=== PATIENT | male | born 1970 | race Caucasian/White ===

== ENCOUNTER 2018-01-07 13:19 | Inpatient (IN) | payer OTHER ==
[2018-01-07 14:40] LABS: HEMATOCRIT 39.9 % (42.0-52.0); HEMOGLOBIN 13.8 g/dl (13.5-17.5); MEAN CORPUSCULAR HEMOGLOBIN 30.3 pg (27.0-33.0); MEAN CORPUSCULAR HGB CONC 34.6 g/dl (32.0-36.5); MEAN CORPUSCULAR VOLUME 87.5 fl (80.0-96.0); PLATELET COUNT, AUTOMATED 298 10^3/uL (150-450); RED BLOOD COUNT 4.56 10^6/uL (4.30-6.10); RED CELL DISTRIBUTION WIDTH 14.6 % (11.5-14.5); WHITE BLOOD COUNT 10.4 10^3/uL (4.0-10.0)
[2018-01-07 15:12] LABS: ALBUMIN 3.7 GM/DL (3.2-5.2); ALBUMIN/GLOBULIN RATIO 1.12 (1.00-1.93); ALKALINE PHOSPHATASE 85 U/L (45-117); ALT/SGPT 17 U/L (12-78); ANION GAP 7 MEQ/L (8-16); AST/SGOT 15 U/L (7-37); BILIRUBIN,DIRECT < 0.1 MG/DL (0.0-0.2); BILIRUBIN,TOTAL 0.3 MG/DL (0.2-1.0); BLOOD UREA NITROGEN 20 MG/DL (7-18); CARBON DIOXIDE LEVEL 28 MEQ/L (21-32); CHLORIDE LEVEL 108 MEQ/L (98-107); CREATININE FOR GFR 0.98 MG/DL (0.70-1.30); ETHYL ALCOHOL (ETHANOL) < 0.003 % (0.000-0.010); GLOMERULAR FILTRATION RATE > 60.0 (>60); GLUCOSE, FASTING 82 MG/DL (70-100); POTASSIUM SERUM 4.3 MEQ/L (3.5-5.1); SALICYLATE LEVEL 4.3 MG/DL (5.0-30.0); SODIUM LEVEL 143 MEQ/L (136-145); THYROID STIMULATING HORMONE 0.362 uIU/ML (0.358-3.740)
[2018-01-07 15:19] LABS: ACETAMINOPHEN LEVEL < 2.0 UG/ML (10.0-30.0)
[2018-01-07 17:28] LABS: AMPHETAMINES LEVEL URINE NEGATIVE (NEGATIVE); BARBITURATES URINE NEGATIVE (NEGATIVE); BENZODIAZEPINES URINE NEGATIVE (NEGATIVE); CANNABINOIDS URINE POSITIVE (NEGATIVE); COCAINE METABOLITE URINE NEGATIVE (NEGATIVE); METHADONE URINE NEGATIVE (NEGATIVE); OPIATES URINE NEGATIVE (NEGATIVE); PHENCYCLIDINE URINE NEGATIVE (NEGATIVE)
[2018-01-07] MEDS: IPRATROPIUM 0.03% NASAL SPRAY 30 ML (ATROVENT) (21:00)
[2018-01-08] MEDS ORDERED: MAALOX 30 ML SUSP *UDC PO (00:15)
[2018-01-08] MEDS ORDERED: ONDANSETRON 4 MG TAB (S0181) PO (00:15)
[2018-01-08] MEDS: NICOTINE 21MG/24HR 1 EA TRANSDERMAL TD ×2 (00:54→09:28)
[2018-01-08] MEDS: NUEDEXTA PO ×3 (01:59→21:26)
[2018-01-08] MEDS: TROSPIUM CHLORIDE 20 MG PO ×3 (01:59→21:26)
[2018-01-08] MEDS: COPAXONE 40 MG/ML SC (02:02)
[2018-01-08] MEDS: BACLOFEN 10 MG TAB PO ×4 (02:04→21:26)
[2018-01-08] MEDS: traZODone 50 MG TAB PO ×2 (02:14→21:27)
[2018-01-08] MEDS: PANTOPRAZOLE 40MG TAB (PROTONIX) PO ×2 (06:18→17:07)
[2018-01-08] MEDS: LISINOPRIL 10 MG TAB PO (09:28)
[2018-01-08] MEDS: NEPHRO-VIT TAB (NEPHROCAPS) PO (09:28)
[2018-01-08] MEDS: ASPIRIN 81 MG ENTERIC TAB PO (09:28)
[2018-01-08] MEDS: VITAMIN D 1,000 INTERNATIONAL UNITS TABLET PO (09:29)
[2018-01-08] MEDS: IPRATROPIUM 0.03% NASAL SPRAY 30 ML (ATROVENT) ×2 (09:29→21:25)
[2018-01-08] MEDS: CETIRIZINE (ZyrTEC) 10 MG TAB PO (09:29)
[2018-01-08] MEDS: FLUTICASONE PROP 0.05% NASAL SPRAY 16 GM (FLONASE) (09:29)
[2018-01-08] MEDS: INFLUENZA QUADRIVALENT PF VACCINE 0.5ML SYRINGE (90686) IM (09:32)
[2018-01-08] MEDS: ACETAMINOPHEN TAB 650MG DOSE (2X325MG) PO ×2 (10:25→16:41)
[2018-01-09] MEDS: PANTOPRAZOLE 40MG TAB (PROTONIX) PO ×2 (06:08→17:09)
[2018-01-09] MEDS: BACLOFEN 10 MG TAB PO ×3 (06:08→21:21)
[2018-01-09] MEDS: LISINOPRIL 10 MG TAB PO (08:13)
[2018-01-09] MEDS: ASPIRIN 81 MG ENTERIC TAB PO (08:13)
[2018-01-09] MEDS: IPRATROPIUM 0.03% NASAL SPRAY 30 ML (ATROVENT) ×2 (08:14→20:12)
[2018-01-09] MEDS: VITAMIN D 1,000 INTERNATIONAL UNITS TABLET PO (08:14)
[2018-01-09] MEDS: NUEDEXTA PO ×2 (08:14→20:12)
[2018-01-09] MEDS: TROSPIUM CHLORIDE 20 MG PO ×2 (08:14→20:12)
[2018-01-09] MEDS: FLUTICASONE PROP 0.05% NASAL SPRAY 16 GM (FLONASE) (08:14)
[2018-01-09] MEDS: NEPHRO-VIT TAB (NEPHROCAPS) PO (08:14)
[2018-01-09] MEDS: CETIRIZINE (ZyrTEC) 10 MG TAB PO (08:14)
[2018-01-09] MEDS: NICOTINE 21MG/24HR 1 EA TRANSDERMAL TD (08:15)
[2018-01-09] MEDS: traZODone 50 MG TAB PO (20:11)
[2018-01-09] MEDS: ACETAMINOPHEN TAB 650MG DOSE (2X325MG) PO (21:21)
[2018-01-09] MEDS: MOM 30ML SUSPENSION UDC PO (21:29)
[2018-01-09] MEDS: BACITRACIN OINT 30GM TOP (23:02)
[2018-01-10] MEDS: BACLOFEN 10 MG TAB PO ×3 (06:02→21:14)
[2018-01-10] MEDS: PANTOPRAZOLE 40MG TAB (PROTONIX) PO ×2 (06:02→18:06)
[2018-01-10] MEDS: BACITRACIN OINT 30GM TOP ×2 (08:15→21:15)
[2018-01-10] MEDS: ASPIRIN 81 MG ENTERIC TAB PO (08:15)
[2018-01-10] MEDS: IPRATROPIUM 0.03% NASAL SPRAY 30 ML (ATROVENT) ×2 (08:15→21:14)
[2018-01-10] MEDS: FLUTICASONE PROP 0.05% NASAL SPRAY 16 GM (FLONASE) (08:15)
[2018-01-10] MEDS: VITAMIN D 1,000 INTERNATIONAL UNITS TABLET PO (08:16)
[2018-01-10] MEDS: NEPHRO-VIT TAB (NEPHROCAPS) PO (08:16)
[2018-01-10] MEDS: NICOTINE 21MG/24HR 1 EA TRANSDERMAL TD (08:16)
[2018-01-10] MEDS: CETIRIZINE (ZyrTEC) 10 MG TAB PO (08:16)
[2018-01-10] MEDS: LISINOPRIL 10 MG TAB PO (08:16)
[2018-01-10] MEDS: NUEDEXTA PO ×2 (08:16→21:15)
[2018-01-10] MEDS: ESCITALOPRAM OXALATE 5MG TABLET (LEXAPRO) PO (08:16)
[2018-01-10] MEDS: TROSPIUM CHLORIDE 20 MG PO ×2 (08:18→21:15)
[2018-01-10] MEDS: COPAXONE 40 MG/ML SC (08:19)
[2018-01-10 09:27] LABS: TOTAL 25(OH) VITAMIN D 35.7 NG/ML (30.0-100.0)
[2018-01-11] MEDS: PANTOPRAZOLE 40MG TAB (PROTONIX) PO ×2 (06:04→17:21)
[2018-01-11] MEDS: BACLOFEN 10 MG TAB PO ×3 (06:04→21:06)
[2018-01-11] MEDS: NICOTINE 21MG/24HR 1 EA TRANSDERMAL TD (08:14)
[2018-01-11] MEDS: TROSPIUM CHLORIDE 20 MG PO ×2 (08:15→21:06)
[2018-01-11] MEDS: NUEDEXTA PO ×2 (08:15→21:06)
[2018-01-11] MEDS: FLUTICASONE PROP 0.05% NASAL SPRAY 16 GM (FLONASE) (08:15)
[2018-01-11] MEDS: BACITRACIN OINT 30GM TOP ×2 (08:16→21:00)
[2018-01-11] MEDS: CETIRIZINE (ZyrTEC) 10 MG TAB PO (08:16)
[2018-01-11] MEDS: VITAMIN D 1,000 INTERNATIONAL UNITS TABLET PO (08:17)
[2018-01-11] MEDS: ASPIRIN 81 MG ENTERIC TAB PO (08:17)
[2018-01-11] MEDS: LISINOPRIL 10 MG TAB PO (08:17)
[2018-01-11] MEDS: IPRATROPIUM 0.03% NASAL SPRAY 30 ML (ATROVENT) ×2 (08:17→21:05)
[2018-01-11] MEDS: NEPHRO-VIT TAB (NEPHROCAPS) PO (08:18)
[2018-01-11] MEDS: ESCITALOPRAM OXALATE 5MG TABLET (LEXAPRO) PO (08:18)
[2018-01-11] MEDS: hydrOXYzine 25 MG TAB PO (17:23)
[2018-01-11] MEDS: traZODone 50 MG TAB PO (21:08)
[2018-01-12] MEDS: PANTOPRAZOLE 40MG TAB (PROTONIX) PO ×2 (05:58→17:53)
[2018-01-12] MEDS: BACLOFEN 10 MG TAB PO ×3 (05:58→21:19)
[2018-01-12] MEDS: COPAXONE 40 MG/ML SC (08:11)
[2018-01-12] MEDS: BACITRACIN OINT 30GM TOP ×2 (08:11→21:00)
[2018-01-12] MEDS: TROSPIUM CHLORIDE 20 MG PO ×2 (08:11→21:22)
[2018-01-12] MEDS: NUEDEXTA PO ×2 (08:11→21:19)
[2018-01-12] MEDS: FLUTICASONE PROP 0.05% NASAL SPRAY 16 GM (FLONASE) (08:12)
[2018-01-12] MEDS: IPRATROPIUM 0.03% NASAL SPRAY 30 ML (ATROVENT) ×2 (08:12→21:19)
[2018-01-12] MEDS: ASPIRIN 81 MG ENTERIC TAB PO (08:12)
[2018-01-12] MEDS: NEPHRO-VIT TAB (NEPHROCAPS) PO (08:12)
[2018-01-12] MEDS: ESCITALOPRAM OXALATE 5MG TABLET (LEXAPRO) PO (08:13)
[2018-01-12] MEDS: LISINOPRIL 10 MG TAB PO (08:13)
[2018-01-12] MEDS: CETIRIZINE (ZyrTEC) 10 MG TAB PO (08:13)
[2018-01-12] MEDS: VITAMIN D 1,000 INTERNATIONAL UNITS TABLET PO (08:15)
[2018-01-12] MEDS: NICOTINE 21MG/24HR 1 EA TRANSDERMAL TD (08:15)
[2018-01-12] MEDS: traZODone 50 MG TAB PO (21:21)
[2018-01-13] MEDS: PANTOPRAZOLE 40MG TAB (PROTONIX) PO (06:07)
[2018-01-13] MEDS: BACLOFEN 10 MG TAB PO ×2 (06:07→13:35)
[2018-01-13] MEDS: NEPHRO-VIT TAB (NEPHROCAPS) PO (08:22)
[2018-01-13] MEDS: NICOTINE 21MG/24HR 1 EA TRANSDERMAL TD (08:22)
[2018-01-13] MEDS: CETIRIZINE (ZyrTEC) 10 MG TAB PO (08:22)
[2018-01-13] MEDS: LISINOPRIL 10 MG TAB PO (08:22)
[2018-01-13] MEDS: ASPIRIN 81 MG ENTERIC TAB PO (08:22)
[2018-01-13] MEDS: BACITRACIN OINT 30GM TOP (08:23)
[2018-01-13] MEDS: NUEDEXTA PO (08:23)
[2018-01-13] MEDS: FLUTICASONE PROP 0.05% NASAL SPRAY 16 GM (FLONASE) (08:23)
[2018-01-13] MEDS: IPRATROPIUM 0.03% NASAL SPRAY 30 ML (ATROVENT) (08:23)
[2018-01-13] MEDS: ESCITALOPRAM OXALATE 5MG TABLET (LEXAPRO) PO (08:23)
[2018-01-13] MEDS: VITAMIN D 1,000 INTERNATIONAL UNITS TABLET PO (08:23)
[2018-01-13] MEDS: TROSPIUM CHLORIDE 20 MG PO (08:24)
== END 2018-01-13 14:50 | disposition home or self-care (01) | DRG 756 ==
LOC: M ED 13:19 → M ED INP 21:00 → M PSY 22:15
DX: F41.9 Anxiety disorder, unspecified (principal); E55.9 Vitamin D deficiency, unspecified; I10 Essential (primary) hypertension; G35 Multiple sclerosis; F32.9 Major depressive disorder, single episode, unspecified; Z72.89 Other problems related to lifestyle; F42.9 Obsessive-compulsive disorder, unspecified; F12.90 Cannabis use, unspecified, uncomplicated; Z59.8 Other problems related to housing and economic circumstances; Z79.82 Long term (current) use of aspirin; Z79.899 Other long term (current) drug therapy; K21.9 Gastro-esophageal reflux disease without esophagitis; L98.9 Disorder of the skin and subcutaneous tissue, unspecified

== ENCOUNTER → 2024-02-09 | Outpatient (CLI) | payer OTHER, MEDICAID ==
[~2024-02-09] MED LIST: ASPI81TA86 PO; BACL10TA2 PO; CETI10TA PO; COPA1INJ SC; FLUTISP; IPRA3SP; LEXA5TAB13 PO; LISI10TA22 PO; MYRB50TA; NUED20CA PO; ONDA-83 PO; PANT40TA29 PO; SUCR1ORA; TROS20TA3 PO
== END ==
LOC: M CARPUL 09:44
PROVIDERS: ATTEND Internal Medicine Hematology & Oncology
DX: R93.89 Abnormal findings on diagnostic imaging of other specified body structures (principal)

== ENCOUNTER → 2024-02-23 | Outpatient (CLI) | payer OTHER, MEDICAID ==
[~2024-02-23] MED LIST changes: +PROHANCE 279.3MG/ML 15ML VIAL As Ordered ONE
== END ==
LOC: M RAD 14:35
PROVIDERS: ATTEND Internal Medicine Hematology & Oncology
DX: R93.89 Abnormal findings on diagnostic imaging of other specified body structures (principal); R90.82 White matter disease, unspecified
CPT/HCPCS: 70553; A9576

== ENCOUNTER → 2024-03-27 | Outpatient (CLI) | payer OTHER, MEDICAID ==
[~2024-03-27] MED LIST changes: -PROHANCE 279.3MG/ML 15ML VIAL As Ordered ONE
== END ==
LOC: M RAD 13:20
PROVIDERS: ATTEND Internal Medicine Pulmonary Disease
DX: R91.8 Other nonspecific abnormal finding of lung field (principal); J43.2 Centrilobular emphysema; J47.9 Bronchiectasis, uncomplicated

== ENCOUNTER → 2024-05-04 | Outpatient (CLI) | payer OTHER, MEDICAID ==
[~2024-05-04] MED LIST changes: +D-3-50003 PO; +EQL50TAB2 PO; -MYRB50TA; +MYRB50TA PO; +PROA1AER2 IN; -SUCR1ORA; +SUCR1ORA PO; +SUCR1ORA2 PO; +VENTAER INH
== END ==
LOC: M RAD 10:59
PROVIDERS: ATTEND Internal Medicine Pulmonary Disease
DX: R91.8 Other nonspecific abnormal finding of lung field (principal); I77.810 Thoracic aortic ectasia; J43.9 Emphysema, unspecified

== ENCOUNTER 2024-05-10 07:12 | Day surgery (SDC) | payer OTHER, MEDICAID ==
[~2024-05-10] VITALS: Ht 172.7 cm; Wt 61.8 kg
[2024-05-10] MEDS ORDERED: ONDANSETRON 4MG 2ML VIAL As Ordered ONE (07:16)
[2024-05-10] MEDS ORDERED: SUGAMMADEX SODIUM 500 MG/5 ML VIAL (BRIDION) As Ordered ONE (07:16)
[2024-05-10] MEDS ORDERED: LIDOCAINE 2% 100MG/5ML SDV (FOR ANES.) As Ordered ONE (07:16)
[2024-05-10] MEDS ORDERED: fentaNYL 100 MCG/2 ML INJECTION As Ordered ONE (07:16)
[2024-05-10] MEDS ORDERED: MIDAZOLAM INJ 2MG/2ML VIAL As Ordered ONE (07:16)
[2024-05-10] MEDS ORDERED: propofoL 200 MG/20 ML VIAL As Ordered ONE (07:16)
[2024-05-10] MEDS ORDERED: GLYCOPYRROLATE INJ 0.2 MG/ML 2 ML VIAL As Ordered ONE (07:16)
[2024-05-10] MEDS ORDERED: ROCURONIUM BROMIDE 50MG/5ML VIAL As Ordered ONE (07:16)
[2024-05-10] MEDS ORDERED: LABETALOL 100MG/20ML VIAL As Ordered ONE (07:55)
[2024-05-10] MEDS: ALBUTEROL SULFATE 2.5MG/0.5ML INH NEB SOLN INH ONE (08:13)
[2024-05-10] MEDS: LIDOCAINE PRES-FREE 2% 10ML AMP INH ONE (08:13)
[2024-05-10] MEDS ORDERED: LR 1,000 ML IV SCH ×2 (08:15→10:15)
[2024-05-10] MEDS: CETACAINE SPRAY 5GM As Ordered ONE (09:31)
[2024-05-10] MEDS: EPINEPHrine 1MG/10ML SYRINGE 1.5IN As Ordered ONE (10:00)
[2024-05-10] MEDS ORDERED: HYDROMORPHONE HCL 0.5 MG/ 0.5 ML SYRINGE IV PRN (10:15)
[2024-05-10] MEDS ORDERED: oxyCODONE 5MG TAB PO PRN (10:15)
[2024-05-10] MEDS ORDERED: fentaNYL 100 MCG/2 ML INJECTION IV PRN (10:15)
[2024-05-10] MEDS ORDERED: ONDANSETRON 4MG 2ML VIAL IV PRN (10:15)
[2024-05-10 11:10] VITALS: BP 143/100; TEMP 96.6; O2SAT 95
== END 2024-05-10 11:44 | disposition home or self-care (01) ==
LOC: M SDC 07:12
PROVIDERS: ATTEND Internal Medicine Pulmonary Disease
DX: J84.10 Pulmonary fibrosis, unspecified (principal); J44.9 Chronic obstructive pulmonary disease, unspecified; I10 Essential (primary) hypertension; K21.9 Gastro-esophageal reflux disease without esophagitis; F41.9 Anxiety disorder, unspecified; F32.A Depression, unspecified; G35 Multiple sclerosis; Z79.51 Long term (current) use of inhaled steroids; Z79.899 Other long term (current) drug therapy; Z87.891 Personal history of nicotine dependence
CPT/HCPCS: 31624; 31627; 31628; 31654; 71045; 76000; 87102; 87116; 87206; 88305; 93005; C1601; J0171; J1100; J1596; J1920; J2250; J2405; J3010; S2900

== ENCOUNTER → 2024-05-18 | Outpatient (CLI) | payer OTHER, MEDICAID ==
[~2024-05-18] MED LIST changes: +CRAN500C11 PO
== END ==
LOC: M RAD 13:55
PROVIDERS: ATTEND Internal Medicine Pulmonary Disease
DX: R91.8 Other nonspecific abnormal finding of lung field (principal)

== ENCOUNTER → 2024-07-13 | Outpatient (CLI) | payer OTHER ==
[~2024-07-13] MED LIST changes: -CRAN500C11 PO; +CVS500CA5 PO
[2024-07-13 19:22] LABS: BASO # 0.1 10^3/uL (0.0-0.2); BASO % 0.6 % (0.0-1.0); EOS % 0.4 % (0.0-3.0); HEMATOCRIT 43.6 % (42.0-52.0); HEMOGLOBIN 14.6 g/dl (13.5-17.5); LYMPH # 1.7 10^3/uL (1.5-5.0); MEAN CORPUSCULAR HEMOGLOBIN 29.7 pg (27.0-33.0); MEAN CORPUSCULAR HGB CONC 33.5 g/dl (32.0-36.5); MEAN CORPUSCULAR VOLUME 88.8 fl (80.0-96.0); MONO # 0.8 10^3/uL (0.0-0.8); MONO % 9.9 % (2.0-8.0); NEUTROPHILS # 5.3 10^3/uL (1.5-8.5); NEUTROPHILS % 67.8 % (36.0-66.0); PLATELET COUNT, AUTOMATED 268 10^3/uL (150-450); RED BLOOD COUNT 4.91 10^6/uL (4.30-6.10); WHITE BLOOD COUNT 7.9 10^3/uL (4.0-10.0)
[2024-07-13 19:40] LABS: C REACTIVE PROTEIN QUANTITATIV < 0.40 MG/DL (<1.0)
[2024-07-13 19:44] LABS: ALBUMIN 4.1 G/DL (3.2-5.2); ALKALINE PHOSPHATASE 70 U/L (40-129); ALT/SGPT 29 U/L (7.0-40); AST/SGOT 18 U/L (<34); BILIRUBIN,TOTAL 0.5 MG/DL (0.3-1.2); BLOOD UREA NITROGEN 12 MG/DL (9-23); CALCIUM LEVEL 9.7 MG/DL (8.5-10.1); CARBON DIOXIDE LEVEL 26 MMOL/L (20-31); CHLORIDE LEVEL 106 MMOL/L (98-107); CREATININE FOR GFR 0.89 MG/DL (0.70-1.30); ERYTHROCYTE SEDIMENTATION RATE 9 mm/hr (0-20); GLOMERULAR FILTRATION RATE > 60.0 (>56); GLUCOSE, FASTING 77 MG/DL (60-100); POTASSIUM SERUM 4.2 MMOL/L (3.5-5.1); SODIUM LEVEL 139 MMOL/L (136-145); TOTAL PROTEIN 7.7 G/DL (5.7-8.2)
[2024-07-20 17:33] LABS: ASPERGILLUS FLAVUS ABY Negative (Negative); ASPERGILLUS FUMIGATUS ABY Negative (Negative); ASPERGILLUS NIGER ABY Negative (Negative); HISTOPLASMA AB H BAND Negative (Negative); HISTOPLASMA AB M BAND Negative (Negative)
[2024-07-20 20:01] LABS: CRYPTOCOCCUS ANTIBODY SERUM <1:2 (<1:2)
[2024-07-21 20:16] LABS: COCCIDIODES AB IGG NEGATIVE (NEGATIVE); COCCIDIOIDES AB IGM NEGATIVE (NEGATIVE)
[2024-07-24 20:58] LABS: FUNGITELL INTERPRETATION NEGATIVE (NEGATIVE); FUNGITELL, SERUM < 31 pg/mL (<60)
== END ==
LOC: M PLALAB 14:19
PROVIDERS: ATTEND Internal Medicine Infectious Disease
DX: J98.4 Other disorders of lung (principal)

== ENCOUNTER → 2024-07-13 | Outpatient (REF) | payer OTHER | LOC: M SFHCPLAZ 13:59 | PROVIDERS: ATTEND Internal Medicine Infectious Disease | DX: J98.4 Other disorders of lung (principal) ==

== ENCOUNTER → 2024-11-28 | Outpatient (CLI) | payer OTHER, MEDICAID | LOC: M RAD 12:35 | PROVIDERS: ATTEND Internal Medicine Pulmonary Disease | DX: R91.8 Other nonspecific abnormal finding of lung field (principal); J43.8 Other emphysema; J84.9 Interstitial pulmonary disease, unspecified ==

== ENCOUNTER → 2025-03-07 | Outpatient (CLI) | payer OTHER ==
[~2025-03-07] MED LIST changes: -EQL50TAB2 PO; -SUCR1ORA2 PO; +SUCR1ORA20 PO; +VALS1TAB67 PO; +VITA1TAB82 PO
== END ==
LOC: M EKG 14:22
PROVIDERS: ATTEND Internal Medicine Cardiovascular Disease
DX: I49.40 Unspecified premature depolarization (principal)

== ENCOUNTER → 2025-04-18 | Outpatient (CLI) | payer OTHER, MEDICAID | LOC: M CARPUL 13:08 | PROVIDERS: ATTEND Internal Medicine Cardiovascular Disease | DX: R01.1 Cardiac murmur, unspecified (principal); R94.31 Abnormal electrocardiogram [ECG] [EKG]; I34.0 Nonrheumatic mitral (valve) insufficiency ==